=== PATIENT | male | born 1945 | race Caucasian/White ===

== ENCOUNTER 2021-04-18 06:58 | Day surgery (SDC) | payer OTHER, SELFPAY ==
[~2021-04-18] VITALS: Ht 177.8 cm; Wt 74.8 kg
[2021-04-18] MEDS ORDERED: CEFAZOLIN SOD 1 GM in D5W 50 ML IV ONE (07:00)
[2021-04-18] MEDS ORDERED: METOCLOPRAMIDE HCL 10 MG/2 ML VIAL IVP PRN (09:45)
[2021-04-18] MEDS ORDERED: MEPERIDINE HCL/PF 25 MG/ML DISP.SYRIN IVP PRN (09:45)
[2021-04-18] MEDS ORDERED: LR 1,000 ML IV SCH (09:45)
[2021-04-18] MEDS ORDERED: HYDROmorphone 1 MG/ML INJ. CARTRIDGE IVP PRN ×2 (09:45)
[2021-04-18] MEDS ORDERED: D5/0.45 NS 1,000 ML IV SCH (10:15)
[2021-04-18] MEDS ORDERED: PROPOFOL 200MG/ 20ML VIAL (DIPRIVAN) IV ONE (10:33)
[2021-04-18] MEDS ORDERED: DEXAMETHASONE SOD PHOSPHATE 4 MG/ML VIAL IVP ONE (10:33)
[2021-04-18] MEDS ORDERED: ONDANSETRON HCL 4 MG/2 ML VIAL IVP ONE (10:33)
[2021-04-18] MEDS ORDERED: LIDOCAINE 1% 10 MG/ML, 20 ML MDV INJ ONE (10:33)
[2021-04-18] MEDS ORDERED: LR 1,000 ML IV.SOLN IV ONE (10:33)
[2021-04-18] MEDS ORDERED: HEPARIN SODIUM,PORCINE/NS/PF 1,000 UNITS/500 ML BAG IV ONE (10:33)
[2021-04-18] MEDS ORDERED: BUPIVACAINE /EPINEPHRINE/PF 0.25% 30 ML VIAL INJ ONE (10:33)
[2021-04-18] MEDS ORDERED: MIDAZOLAM HCL 5 MG/5 ML VIAL IVP ONE (10:33)
[2021-04-18] MEDS ORDERED: SEVOFLURANE 15 MIN GAS INH ONE (10:33)
[2021-04-18] MEDS ORDERED: NS 1000 ML IV.SOLN IV ONE (10:33)
[2021-04-18] MEDS ORDERED: fentaNYL CITRATE/PF 100 MCG/2 ML AMP IVP ONE (10:33)
[2021-04-18 14:02] VITALS: BP_SYST 139
== END 2021-04-18 12:20 | disposition home or self-care (01) ==
LOC: SDS 06:58 → SMU 06:59 → SDS 12:20
PROVIDERS: ATTEND Colon & Rectal Surgery
DX: C67.9 Malignant neoplasm of bladder, unspecified (principal); E78.5 Hyperlipidemia, unspecified; Z79.899 Other long term (current) drug therapy; Z20.822 Contact with and (suspected) exposure to COVID-19
CPT/HCPCS: 36561; 71045; 77001; C1788; J0690; J1100; J1644; J2001; J2250; J2405; J2704; J3010; J3490; J7030; J7060; J7120; U0003; 76000

== ENCOUNTER 2022-02-08 06:00 | Day surgery (SDC) | payer OTHER ==
[~2022-02-08] VITALS: Ht 177.8 cm; Wt 81.6 kg
[2022-02-08] MEDS ORDERED: cefTRIAXone 1 GM IVPB PREMIX 50 ML IV ONE (07:00)
[2022-02-08] MEDS ORDERED: ONDANSETRON HCL 4 MG/2 ML VIAL ONE (07:42)
[2022-02-08] MEDS ORDERED: fentaNYL CITRATE/PF 100 MCG/2 ML AMP ONE (07:42)
[2022-02-08] MEDS ORDERED: DESFLURANE 15 MIN GAS INH ONE (07:42)
[2022-02-08] MEDS ORDERED: ROCURONIUM BROMIDE 10 MG/ML (ZEMURON) ONE (07:42)
[2022-02-08] MEDS ORDERED: PROPOFOL 200MG/ 20ML VIAL (DIPRIVAN) IV ONE (07:42)
[2022-02-08] MEDS ORDERED: SUGAMMADEX SODIUM 200 MG/2 ML VIAL IV ONE (07:42)
[2022-02-08] MEDS ORDERED: LIDOCAINE 1% 10 MG/ML, 20 ML MDV ONE (07:42)
[2022-02-08] MEDS ORDERED: MIDAZOLAM HCL 2 MG/2 ML VIAL (VERSED) ONE (07:42)
[2022-02-08] MEDS ORDERED: DEXAMETHASONE SOD PHOSPHATE 4 MG/ML VIAL ONE (07:42)
[2022-02-08] MEDS ORDERED: ePHEDrine sulfate 50 MG/ML VIAL ONE (07:42)
[2022-02-08] MEDS ORDERED: LR 1,000 ML IV.SOLN IV ONE (07:42)
[2022-02-08] MEDS ORDERED: LABETALOL 100 MG/ 20ML VIAL IVP PRN (08:15)
[2022-02-08] MEDS ORDERED: hydrALAZINE HCL 20 MG/ML VIAL IVP PRN (08:15)
[2022-02-08] MEDS ORDERED: HYDROmorphone 1 MG/ML INJ. CARTRIDGE IVP PRN ×2 (08:15)
[2022-02-08] MEDS ORDERED: LR 1,000 ML IV SCH (08:15)
[2022-02-08] MEDS ORDERED: METOCLOPRAMIDE HCL 10 MG/2 ML VIAL IVP PRN (08:15)
[2022-02-08] MEDS ORDERED: MEPERIDINE HCL/PF 25 MG/ML DISP.SYRIN IVP PRN (08:15)
[2022-02-08] MEDS ORDERED: ACETAMINOPHEN I.V. 1000 MG 100 ML IV ONE (08:36)
[2022-02-08] MEDS: hydrALAZINE HCL 20 MG/ML VIAL ONE ×2 (10:05→10:20)
[2022-02-08 12:20] VITALS: BP_SYST 160
== END 2022-02-08 11:40 | disposition home or self-care (01) ==
LOC: SMU 06:00 → SDS 06:00
PROVIDERS: ATTEND Urology
DX: C67.9 Malignant neoplasm of bladder, unspecified (principal); N13.30 Unspecified hydronephrosis; Z20.822 Contact with and (suspected) exposure to COVID-19; Z79.899 Other long term (current) drug therapy
CPT/HCPCS: 36415; 52332; 52351; 88108; 88305; U0003; J3490; J0696; J1100; J0360; J2001; J3465; J2405; J2704; J3010; Q9967; J7120; C2625; C1769; J0131; 76000

== ENCOUNTER 2023-01-25 05:40 | Day surgery (SDC) | payer OTHER ==
[~2023-01-25] VITALS: Ht 177.8 cm; Wt 86.2 kg
[2023-01-25] MEDS ORDERED: MAGN100T6 PO (07:04)
[2023-01-25] MEDS ORDERED: LOSA50TA3 PO (07:04)
[2023-01-25] MEDS ORDERED: NS IRRIG SOLN 1000 ML IR ONE (08:06)
[2023-01-25] MEDS ORDERED: SUCCINYLCHOLINE CHLORIDE 20 MG/ML(QUELICIN) ONE (08:06)
[2023-01-25] MEDS ORDERED: ROCURONIUM BROMIDE 10 MG/ML (ZEMURON) ONE (08:06)
[2023-01-25] MEDS ORDERED: ceFAZolin SODIUM 2 GM VIAL ONE (08:06)
[2023-01-25] MEDS ORDERED: NEOSTIGMINE METHYLSULFATE 1 MG/ML, 10 ML VIAL ONE (08:06)
[2023-01-25] MEDS ORDERED: LR 1,000 ML IV.SOLN IV ONE (08:06)
[2023-01-25] MEDS ORDERED: PROPOFOL 200MG/ 20ML VIAL (DIPRIVAN) IV ONE (08:06)
[2023-01-25] MEDS ORDERED: BUPIVACAINE /PF 0.25% 30 ML VIAL INJ ONE (08:06)
[2023-01-25] MEDS ORDERED: SEVOFLURANE 15 MIN GAS INH ONE (08:06)
[2023-01-25] MEDS ORDERED: GLYCOPYRROLATE 0.2 MG/ML VIAL ONE (08:06)
[2023-01-25] MEDS ORDERED: KETOROLAC TROMETHAMINE 30 MG VIAL ONE (08:06)
[2023-01-25] MEDS ORDERED: BUPIVACAINE LIPOSOME/PF 266 MG/20 ML VIAL INFIL ONE (09:41)
[2023-01-25] MEDS ORDERED: ONDANSETRON HCL 4 MG/2 ML VIAL IVP PRN ×2 (10:15→15:15)
[2023-01-25] MEDS ORDERED: HYDROmorphone 1 MG/ML INJ. CARTRIDGE IVP PRN ×2 (10:15→15:15)
[2023-01-25] MEDS ORDERED: ACETAMINOPHEN I.V. 1000 MG 100 ML IV ONE (10:15)
[2023-01-25] MEDS ORDERED: METOCLOPRAMIDE HCL 10 MG/2 ML VIAL IVP PRN (10:15)
[2023-01-25 12:30] VITALS: BP_SYST 153; PULSE 46; RESP 18; TEMP 97
[2023-01-25 12:47] VITALS: BP_SYST 148; PULSE 52; RESP 20; TEMP 96.5; O2SAT 96
[2023-01-25] MEDS: LR 1,000 ML IV SCH (14:00)
[2023-01-25] MEDS ORDERED: ACETAMINOPHEN 325 MG TABLET PO PRN (15:15)
[2023-01-25] MEDS ORDERED: ZOLPIDEM TARTRATE 5 MG TABLET PO PRN (15:15)
[2023-01-25] MEDS ORDERED: MORPHINE 4 MG INJ. 4 MG/ML VIAL IVP PRN (15:15)
[2023-01-25] MEDS ORDERED: HYDROcodone/ACETAMIN 5-325 MG TAB (NORCO/ VICODIN) PO PRN ×2 (15:15)
[2023-01-25] MEDS: CEFAZOLIN 1 GM IVPB PREMIX 50 ML IV SCH (16:34)
[2023-01-25 16:48] VITALS: BP_SYST 146; PULSE 55; RESP 16; TEMP 96.4; O2SAT 97
[2023-01-25 19:30] VITALS: BP_SYST 134; PULSE 84; TEMP 97; O2SAT 97
[2023-01-25 19:45] VITALS: O2SAT 96
[2023-01-25] MEDS: DOCUSATE SODIUM 250 MG CAPSULE PO SCH (20:24)
[2023-01-26 00:31] VITALS: BP_SYST 147; PULSE 82; RESP 16; TEMP 96.9; O2SAT 97
[2023-01-26 00:32] VITALS: BP_SYST 132; PULSE 70; RESP 16; TEMP 97.5; O2SAT 97
[2023-01-26] MEDS: CEFAZOLIN 1 GM IVPB PREMIX 50 ML IV SCH (01:58)
[2023-01-26] MEDS: LR 1,000 ML IV SCH (06:53)
[2023-01-26] MEDS: DOCUSATE SODIUM 250 MG CAPSULE PO SCH (08:31)
[2023-01-26 08:42] VITALS: BP_SYST 130; PULSE 92; RESP 18; TEMP 97.7; O2SAT 98
[2023-01-26] MEDS ORDERED: LOSARTAN POTASSIUM 50 MG TABLET (COZAAR) PO SCH (09:00)
[2023-01-26 10:52] VITALS: O2SAT 0
[2023-01-26 15:02] VITALS: BP_SYST 126; PULSE 86; RESP 18; TEMP 98; O2SAT 96
== END 2023-01-26 15:48 | disposition home or self-care (01) ==
LOC: SDS 05:40 → STU 05:41 → SMU 05:44 → SDS 01-26 15:48
PROVIDERS: ATTEND Surgery
DX: K43.2 Incisional hernia without obstruction or gangrene (principal); K43.5 Parastomal hernia without obstruction or gangrene; D69.6 Thrombocytopenia, unspecified; I12.9 Hypertensive chronic kidney disease with stage 1 through stage 4 chronic kidney disease, or unspecified chronic kidney disease; N18.4 Chronic kidney disease, stage 4 (severe); Z79.899 Other long term (current) drug therapy
CPT/HCPCS: 87081; 49621; 49593; 88302; 88304; J2710; C9290; J3490 ×2; J0690; J1885; J2704; J0330; J7120 ×2; J0131

== ENCOUNTER 2024-02-04 09:35 | Day surgery (SDC) | payer OTHER ==
[~2024-02-04] VITALS: Ht 177.8 cm; Wt 79.4 kg
[~2024-02-04 09:35] MED LIST: CEFTRIAXONE SOD 1 GM/ D5W 50 ML IV ONE; LOSA-413 PO; MAGN100T6 PO
[2024-02-04] MEDS ORDERED: MIDAZOLAM HCL 2 MG/2 ML VIAL (VERSED) ONE (12:15)
[2024-02-04] MEDS ORDERED: NS 1000 ML IV.SOLN IV ONE (12:15)
[2024-02-04] MEDS ORDERED: cefTRIAXone 1 GM VIAL ONE (12:15)
[2024-02-04] MEDS ORDERED: LIDOCAINE MPF 2% 20 MG/1 ML, 5 ML VIAL INH ONE (12:15)
[2024-02-04] MEDS ORDERED: SEVOFLURANE 15 MIN GAS INH ONE (12:15)
[2024-02-04] MEDS ORDERED: ONDANSETRON HCL 4 MG/2 ML VIAL ONE (12:15)
[2024-02-04] MEDS ORDERED: EPINEPHrine HCL 1 MG/ML VIAL ONE (12:15)
[2024-02-04] MEDS ORDERED: LR 1,000 ML IV.SOLN IV ONE (12:15)
[2024-02-04] MEDS ORDERED: PROPOFOL 200MG/ 20ML VIAL (DIPRIVAN) IV ONE (12:15)
[2024-02-04] MEDS ORDERED: METOCLOPRAMIDE HCL 10 MG/2 ML VIAL ONE (12:15)
[2024-02-04] MEDS ORDERED: iohexoL 240 mgI/mL, 50 ML INFUS..BTL IV ONE (12:49)
[2024-02-04] MEDS ORDERED: ONDANSETRON HCL 4 MG/2 ML VIAL IVP PRN (13:45)
[2024-02-04] MEDS ORDERED: HYDROmorphone 2 MG/ML VIAL IVP PRN (13:45)
[2024-02-04] MEDS ORDERED: HYDROmorphone 1 MG/ML INJ. CARTRIDGE IVP PRN (13:45)
[2024-02-04] MEDS ORDERED: LR 1,000 ML IV SCH (13:45)
[2024-02-04 15:09] VITALS: O2SAT 98
[2024-02-12 12:13] VITALS: BP_SYST 128; PULSE 85; RESP 16
== END 2024-02-04 16:26 | disposition home or self-care (01) ==
LOC: SDS 09:35 → SMU 09:36 → SDS 16:26
PROVIDERS: ATTEND Urology
DX: Z46.6 Encounter for fitting and adjustment of urinary device (principal); N13.30 Unspecified hydronephrosis; I12.0 Hypertensive chronic kidney disease with stage 5 chronic kidney disease or end stage renal disease; N18.6 End stage renal disease; Z88.0 Allergy status to penicillin; Z98.890 Other specified postprocedural states; Z79.899 Other long term (current) drug therapy
CPT/HCPCS: 87081; 52332; 84132; 36415; 74420; Q9966; J0696; J0171; J2765; J3465; J2405; J2704; J7060; J7120; J7030; C1758 ×2; C2625; C1769 ×2; 76000